=== PATIENT | female | born 1990 | race Caucasian/White ===

== ENCOUNTER 2018-02-21 15:58 | Inpatient (IN) | payer OTHER ==
[2018-02-21 16:43] LABS: WHITE BLOOD COUNT 8.6 10^3/ul (4.8-10.8)
[2018-02-21 16:43] LABS: ABNORMAL IP MESSAGE 1; HEMATOCRIT 25.8 % (37.0-47.0); MEAN CORPUSCULAR HEMOGLOBIN 14.8 pg (29.0-33.0); MEAN CORPUSCULAR HGB CONC 24.8 g/dl (32.0-37.0); MEAN CORPUSCULAR VOLUME 59.6 fl (82.0-101.0); MEAN PLATELET VOLUME 9.6 fl (7.4-10.4); PLATELET COUNT 471 10^3/UL (140-415); RED BLOOD COUNT 4.33 10^6/ul (4.20-5.40); RED CELL DISTRIBUTION WIDTH 20.2 % (11.5-14.5)
[2018-02-21 16:48] LABS: POSITIVE DIFF @See below
[2018-02-21 16:52] LABS: ADD MAN DIFF? YES; HEMOGLOBIN 6.4 g/dl (12.0-16.0)
[2018-02-21] MEDS ORDERED: SOD CHLORIDE 0.9% 250 ML IV (16:52)
[2018-02-21 17:03] LABS: PROTIME 13.3 Sec (11.9-14.9)
[2018-02-21 17:04] LABS: PARTIAL THROMBOPLASTIN TIME 24.6 Sec (25.0-35.0)
[2018-02-21] MEDS: SOD CHLORIDE 0.9% 1,000 ML IV (17:04)
[2018-02-21 17:09] LABS: ALANINE AMINOTRANSFERASE 31 IU/L (13-69); ALBUMIN 4.8 g/dl (3.3-4.9); ALBUMIN/GLOBULIN RATIO 1.29; ALKALINE PHOSPHATASE 77 IU/L (42-121); ANION GAP 18 (8-16); ASPARTATE AMINO TRANSFERASE 38 IU/L (15-46); BILIRUBIN,INDIRECT 0.8 mg/dl (0-1.1); BILIRUBIN,TOTAL 0.8 mg/dl (0.2-1.3); BLOOD UREA NITROGEN 8 mg/dl (7-20); CALCIUM 9.3 mg/dl (8.4-10.2); CARBON DIOXIDE 24 mmol/L (21-31); CHLORIDE 106 mmol/L (97-110); CREATININE 0.57 mg/dl (0.44-1.00); GLUCOSE 94 mg/dl (70-220); POTASSIUM 3.7 mmol/L (3.5-5.1); SODIUM 144 mmol/L (135-144); TOTAL PROTEIN 8.5 g/dl (6.1-8.1)
[2018-02-21 17:14] LABS: PATH REVIEW? YES
[2018-02-21 17:17] LABS: ANISOCYTOSIS 3+ (0-0); BAND NEUTROPHILS % (M) 1 % (0-4); EOSINOPHILS % (M) 3 % (0-7); HYPOCHROMASIA 2+ (0-0); LYMPHOCYTES #M 3.2 10^3/ul (0.8-2.9); LYMPHOCYTES % (M) 38 % (15-51); MICROCYTOSIS 3+ (0-0); MONOCYTE #M 0.4 10^3/ul (0.3-0.9); MONOCYTES % (M) 5 % (0-11); PLATELET ESTIMATE INCREASED; POIKILOCYTOSIS 2+ (0-0); SEG NEUT #M 4.6 10^3/ul (1.6-7.5); SEGMENTED NEUTROPHILS (M) % 53 % (39-77); SMUDGE%M 7 % (0-0)
[2018-02-21 17:25] LABS: TROPONIN-I < 0.012 ng/ml (0.00-0.12)
[2018-02-21] MEDS ORDERED: NACL 0.9% 3 ML SYG IV (18:00)
[2018-02-21] MEDS ORDERED: DOCUSATE SODIUM 100 MG CAP PO (18:00)
[2018-02-21] MEDS ORDERED: ACETAMINOPHEN 325 MG TAB PO (18:00)
[2018-02-21] MEDS ORDERED: ONDANSETRON 4 MG INJ IV ×2 (18:00→23:30)
[2018-02-21] MEDS ORDERED: HYDROCODONE/APAP (5/325) TAB PO (18:00)
[2018-02-21 18:36] LABS: IRON 26 ug/dl (35-150)
[2018-02-21 18:46] LABS: % IRON SATURATION 6 % SAT (22-52); TOTAL IRON BINDING CAPACITY 438 ug/dl (241-421)
[2018-02-21 19:26] LABS: IMMEDIATE SPIN CROSSMATCH 1 3
[2018-02-21] MEDS: ACETAMINOPHEN 325 MG TAB PO (19:36)
[2018-02-21 23:43] LABS: ADD MAN DIFF? NO
[2018-02-21 23:44] LABS: ABNORMAL IP MESSAGE 1; BASOPHILS % 0.2 % (0.0-2.0); EOSINOPHILS # 0.2 10^3/ul (0.0-0.5); EOSINOPHILS % 2.5 % (0.0-7.0); HEMATOCRIT 25.6 % (37.0-47.0); LYMPHOCYTES # 2.8 10^3/ul (0.8-2.9); LYMPHOCYTES % 31.8 % (15.0-51.0); MEAN CORPUSCULAR HEMOGLOBIN 16.3 pg (29.0-33.0); MEAN CORPUSCULAR HGB CONC 26.2 g/dl (32.0-37.0); MEAN CORPUSCULAR VOLUME 62.4 fl (82.0-101.0); MEAN PLATELET VOLUME 9.2 fl (7.4-10.4); MONOCYTE # 0.7 10^3/ul (0.3-0.9); NEUTROPHIL # 4.9 10^3/ul (1.6-7.5); NEUTROPHILS % 57.2 % (39.0-77.0); PLATELET COUNT 368 10^3/UL (140-415); RED CELL DISTRIBUTION WIDTH 23.6 % (11.5-14.5)
[2018-02-21 23:44] LABS: WHITE BLOOD COUNT 8.7 10^3/ul (4.8-10.8)
[2018-02-21 23:56] LABS: HEMOGLOBIN 6.7 g/dl (12.0-16.0); POSITIVE DIFF @See below
[2018-02-22 05:52] LABS: ADD MAN DIFF? NO
[2018-02-22 06:02] LABS: WHITE BLOOD COUNT 7.5 10^3/ul (4.8-10.8)
[2018-02-22 06:02] LABS: ABNORMAL IP MESSAGE 1; BASOPHILS % 0.3 % (0.0-2.0); EOSINOPHILS # 0.3 10^3/ul (0.0-0.5); EOSINOPHILS % 3.5 % (0.0-7.0); HEMATOCRIT 29.5 % (37.0-47.0); LYMPHOCYTES # 2.7 10^3/ul (0.8-2.9); LYMPHOCYTES % 35.6 % (15.0-51.0); MEAN CORPUSCULAR HEMOGLOBIN 17.5 pg (29.0-33.0); MEAN CORPUSCULAR HGB CONC 27.1 g/dl (32.0-37.0); MEAN CORPUSCULAR VOLUME 64.6 fl (82.0-101.0); MEAN PLATELET VOLUME 9.8 fl (7.4-10.4); MONOCYTE # 0.7 10^3/ul (0.3-0.9); NEUTROPHIL # 3.9 10^3/ul (1.6-7.5); NEUTROPHILS % 51.5 % (39.0-77.0); PLATELET COUNT 372 10^3/UL (140-415); RED BLOOD COUNT 4.57 10^6/ul (4.20-5.40); RED CELL DISTRIBUTION WIDTH 25.3 % (11.5-14.5)
[2018-02-22 06:16] LABS: POSITIVE DIFF @See below
== END 2018-02-22 10:43 | disposition home or self-care (01) | DRG 812 ==
LOC: E/R 15:58 → MS1 17:41
PROVIDERS: Pediatrics
PROC: 30233N1 Transfusion of Nonautologous Red Blood Cells into Peripheral Vein, Percutaneous Approach (ICD-10-PCS; principal; 2018-02-21)
DX: D64.9 Anemia, unspecified (principal); N93.8 Other specified abnormal uterine and vaginal bleeding
CPT/HCPCS: 36415; 36430; 76856; 80053; 81025; 83540; 84443; 84484; 85025; 85610; 85730; 86850; 86900; 86901; 86920; 93005; 99291-25